=== PATIENT | female | born 1975 | race American Indian/Alaskan Native ===

== ENCOUNTER 2021-10-23 11:38 | Emergency (ER) | payer BC, MEDICAID, OTHER ==
[~2021-10-23] VITALS: Ht 165.1 cm; Wt 172.4 kg
[~2021-10-23 11:38] MED LIST: ATE50T PO; ENAL20TA8 PO; FERR-20 PO; METF-370 PO; PROG1CAP PO
[2021-10-23 12:37] VITALS: BP 179/99
[2021-10-23] MEDS ORDERED: KETOROLAC TROMETH 60MG/2ML VIAL IM ONE (12:45)
== END 2021-10-23 13:53 | disposition home or self-care (01) ==
LOC: ER 11:38
DX: S16.1XXA Strain of muscle, fascia and tendon at neck level, initial encounter (principal); S46.912A Strain of unspecified muscle, fascia and tendon at shoulder and upper arm level, left arm, initial encounter; M43.12 Spondylolisthesis, cervical region; I11.0 Hypertensive heart disease with heart failure; I50.9 Heart failure, unspecified; E11.9 Type 2 diabetes mellitus without complications; Z90.89 Acquired absence of other organs; V43.52XA Car driver injured in collision with other type car in traffic accident, initial encounter; Y93.89 Activity, other specified; Y92.410 Unspecified street and highway as the place of occurrence of the external cause; Y99.8 Other external cause status
CPT/HCPCS: 72100; 73030; 96372; 99284; J1885